=== PATIENT | female | born 1975 | race African-American/Black ===

== ENCOUNTER 2017-07-27 09:13 | Observation (INO) | payer OTHER ==
--- NOTE | 2017-07-27 09:37 | PDOC ---
Attending Attestation - HPI HPI: 07/27/17 09:54 The patient is a 42 year old female, with a significant past medical history of fibroids, endometriosis, and ovarian cysts who presents to the emergency department with vaginal bleeding for approximately 4 days. The patient reports heavy vaginal bleeding for 4 days. She states she has been soaking up to 7 pads per day. She denies any associated dysuria, frequency, urgency, or vaginal discharge. She reports associated shortness of breath, but denies any chest pain , diaphoresis, or palpitations. She reports lightheadedness, but denies any fever, chills, headache, or dizziness. She denies any recent travel or sick contacts. Allergies: Aspirin Past Surgical History: Ovarian Cystectomy. Social History: Patient is Jehovahs witness. Non smoker. No ETOH or recreational drug use. - Medical Decision Making 07/27/17 09:52 Documentation prepared by Saroj Morrow, acting as medical social worker for Erinn Ramirez MD. <Saroj Morrow - Last Filed: 07/27/17 09:52> - Resident Resident Name: Ryland Cardenas - ED Attending Attestation I have performed the following: I have examined & evaluated the patient, The case was reviewed & discussed with the resident, I agree w/resident's findings & plan, Exceptions are as noted - Physicial Exam PE: GENERAL: Awake, alert, and fully oriented. Appears pale, diaphoretic, anxious. HEAD: No signs of trauma EYES: PERRLA, EOMI, sclera anicteric, conjunctiva pale ENT: Auricles normal inspection, hearing grossly normal, nares patent, oropharynx clear without exudates. Dry mucosa NECK: Normal ROM, supple, no lymphadenopathy, JVD, or masses LUNGS: Breath sounds equal, clear to auscultation bilaterally. No wheezes, and no crackles HEART: Tachycardic with regular rhythm, normal S1 and S2, no murmurs, rubs or gallops ABDOMEN: Soft, nontender, normoactive bowel sounds. No guarding, no rebound. No masses EXTREMITIES: Normal range of motion, no edema. No clubbing or cyanosis. No cords, erythema, or tenderness NEUROLOGICAL: Cranial nerves II through XII grossly intact. Normal speech. Motor and sensation intact. SKIN: Warm, Dry, normal turgor, no rashes or lesions noted. : Mod. blood in the vaginal vault. - Medical Decision Making Pt presented with hypotension, vag bleeding. She is a [employer], declined any blood products. Initially she was hypotensive and tachycardic. D/w lunchroom worker, plan was to give depo provera. We gave TXA emergently with significant improvement in her vital signs and clinical appearance (the diaphoresis and tachycardia improved, as well as her mental status). D/w IR, recommended MRI/ MRA to further evaluate and determine whether she qualifies for embolization. Also d/w lunchroom worker, did not recommend surgery at this time. We will place on observation to monitor vital signs and serial CBCs. <Erinn Ramirez - Last Filed: 07/27/17 15:44>
[2017-07-27 09:50] VITALS: BMI 20.9
[2017-07-27] MEDS ORDERED: SODIUM CHLORIDE 1,000 ML IV STA (09:56)
[2017-07-27] MEDS ORDERED: TRANEXAMIC ACID 1000 MG/10 ML VIAL IVPUSH ONE (10:02)
[2017-07-27 10:04] LABS: BASO % 0.2 % (0-2.0); EOS % 0.6 % (0-4.5); HEMATOCRIT 22.7 % (32.4-45.2); LYMPH % 20.8 % (8-40); MCH 23.5 pg (25.7-33.7); MCHC 30.6 g/dl (32.0-36.0); MEAN CELL VOLUME 76.7 fl (80-96); MEAN PLT VOLUME 8.6 fl (7.5-11.1); MONO % 8.6 % (3.8-10.2); NEUT % 69.8 % (42.8-82.8); PLATELET COUNT 320 K/MM3 (134-434); RBC 2.96 M/mm3 (3.60-5.2); RDW 17.5 % (11.6-15.6); WHITE BLOOD COUNT 6.9 K/mm3 (4.0-10.0)
[2017-07-27] MEDS ORDERED: medroxyPROGESTERone ACET 150 MG/1 ML VIAL IM ONE ×2 (10:30→12:30)
--- NOTE | 2017-07-27 10:31 | PDOC ---
History of Present Illness - General Chief Complaint: Vaginal Bleeding Stated Complaint: VAGINAL BLEEDING Time Seen by Provider: 07/27/17 09:20 History Source: Patient Exam Limitations: No Limitations - History of Present Illness Initial Comments: 07/27/17 10:29 Patient is a 42F with history of fibroids, ovarian cysts, endometriosis here today complaining of vaginal bleeding for the past 4 days. She endorses associated shortness of breath and weakness. She states that she has gone through 7 pads per day. She states that she called an ambulance because she felt like she was going to faint. Denies fevers, chills, nausea, vomiting. Denies sexual activity and history of STDs. LMP started 4 days ago. Patient states that she has never had this much bleeding before. She states that she takes iron for chronic anemia. Past History - Past Medical History Allergies/Adverse Reactions: Allergies Allergy/AdvReac Type Severity Reaction Status Date / Time aspirin Allergy Mild Itching Verified 07/27/17 09:23 Home Medications: Ambulatory Orders NK [No Known Home Medication] 07/27/17 COPD: No - Suicide/Smoking/Psychosocial Hx Smoking History: Never smoked Have you smoked in the past 12 months: No Information on smoking cessation initiated: No Hx Alcohol Use: Yes Drug/Substance Use Hx: No Substance Use Type: Alcohol Review of Systems - Review of Systems Comments:: 07/27/17 10:39 GENERAL/CONSTITUTIONAL: No fever or chills. Positive for weakness. HEAD, EYES, EARS, NOSE AND THROAT: No change in vision. No sore throat. CARDIOVASCULAR: No chest pain. Positive for shortness of breath RESPIRATORY: No cough, wheezing, or hemoptysis. GASTROINTESTINAL: No nausea, vomiting, diarrhea or constipation. GENITOURINARY: Positive for dysuria. Negative for frequency, or change in urination. MUSCULOSKELETAL: No joint or muscle swelling or pain. No neck or back pain. SKIN: No rash NEUROLOGIC: No headache, vertigo, loss of consciousness, or change in strength/ sensation. ENDOCRINE: No increased thirst. No abnormal weight change HEMATOLOGIC/LYMPHATIC: Positive for history of anemia, easy bleeding. Negative for history of blood clots. ALLERGIC/IMMUNOLOGIC: No hives or skin allergy. *Physical Exam - Vital Signs Last Vital Signs Temp Pulse Resp BP Pulse Ox 98.5 F 88 20 133/97 100 07/27/17 09:20 07/27/17 10:08 07/27/17 10:08 07/27/17 10:08 07/27/17 10:08 - Physical Exam Comments: 07/27/17 10:39 GENERAL: Awake, alert, and fully oriented HEAD: No signs of trauma, normocephalic, atraumatic EYES: PERRLA, EOMI, sclera anicteric, conjunctiva clear ENT: Auricles normal inspection, hearing grossly normal, nares patent, oropharynx clear without exudates. Moist mucosa NECK: Normal ROM, supple, no lymphadenopathy, JVD, or masses LUNGS: No distress, speaks full sentences, tachypneic HEART: Regular rate and rhythm, normal S1 and S2, no murmurs, rubs or gallops, peripheral pulses normal and equal bilaterally. ABDOMEN: Soft, nontender, lumpy uterus consistent with 20wk EXTREMITIES: Normal inspection, Normal range of motion, no edema. No clubbing or cyanosis. NEUROLOGICAL: Cranial nerves II through XII grossly intact. Normal speech, normal gait, no focal sensorimotor deficits SKIN: Warm, Dry, normal turgor, no rashes or lesions noted. ED Treatment Course - LABORATORY CBC & Chemistry Diagram: 07/27/17 09:48 07/27/17 09:48 - ADDITIONAL ORDERS Additional order review: 07/27/17 09:48 RBC 2.96 L MCV 76.7 L MCHC 30.6 L RDW 17.5 H MPV 8.6 Neutrophils % 69.8 Lymphocytes % 20.8 Monocytes % 8.6 Eosinophils % 0.6 Basophils % 0.2 - RADIOLOGY Radiology Studies Ordered: Category Date Time Status PELVIC / BLADDER US [US] Stat Ultrasound 07/27/17 10:27 Ordered TRANSVAGINAL US PREG [US] Stat Ultrasound 07/27/17 09:29 Ordered Medical Decision Making - Medical Decision Making Patient is a 42F with history of anemia, uterine fibroids, endometriosis here today with vaginal bleeding. Hypotensive to 90/60 in field per EMS. Vital signs now stable, but HR in mid 90s. After initial evaluation, patient had syncopal episode of bathroom. Patient is [employer], is refusing any blood products. Initial fluid bolus given. EKG, CBC, CMP, UA, Upreg, Type and Screen, TVUS ordered. TVUS changed to pelvic due to fibroid size. Patient given 1g TXA. OBGYN hayde, suggests giving 25mg of depot provera. IR consulted, Dr Barba, for possible uterine artery embolization. 07/27/17 10:31 Dr Aguilar called, will come see patient. CBC 7.0, blood pressure 130/100, HR 95. 07/27/17 10:51 EKG shows normal sinus rhythm with rate of 85. No st elevations/depression. No significant t wave abnormalities. Normal axis. Normal QRS/QTc/DE intervals. 07/27/17 12:59 Hgb 7, US shows fibroids with complex adenxal cysts. Dr Berkowitz accepted admission to obs tele. 07/27/17 13:37 Dr Barba saw patient, suggests MRI w&w/o to further evaluate possibility of uterine artery embolization. *DC/Admit/Observation/Transfer Diagnosis at time of Disposition: Syncope - Discharge Dispostion Condition at time of disposition: Stable Decision to Admit order: Yes - Referrals - Patient Instructions - Post Discharge Activity
[2017-07-27 10:46] LABS: INR 1.1 (0.82-1.09); PROTHROMBIN TIME (PATIENT) 12.4 SEC (9.7-13.0)
[2017-07-27 11:00] LABS: CALCIUM 8.3 mg/dL (8.5-10.1); CHLORIDE 102 mmol/L (98-107); POTASSIUM 4.4 mmol/L (3.5-5.1); SODIUM 136 mmol/L (136-145)
[2017-07-27 11:05] LABS: URINE APPEARANCE CLOUDY; URINE BILIRUBIN NEGATIVE (<2.0 mg/dL); URINE BLOOD 3+ (NEGATIVE); URINE COLOR RED; URINE GLUCOSE (UA) 2+ (NEGATIVE); URINE KETONE TRACE (NEGATIVE); URINE NITRITE NEGATIVE (NEGATIVE); URINE UROBILINOGEN NEGATIVE mg/dL (0.2-1.0)
[2017-07-27 11:08] LABS: ALBUMIN 3.1 g/dl (3.4-5.0); ALK PHOS 59 U/L (45-117); ANION GAP 12 (8-16); BILIRUBIN,TOTAL 0.4 mg/dL (0.2-1.0); BLOOD UREA NITROGEN 7 mg/dL (7-18); CO2 22 mmol/L (21-32); CREATININE 1.1 mg/dL (0.55-1.02); GLUCOSE,RANDOM 196 mg/dL (74-106); SGOT/AST 9 U/L (15-37); SGPT/ALT 11 U/L (12-78); TOT PROT 6.6 g/dl (6.4-8.2)
[2017-07-27 11:15] LABS: URINE LEUK ESTERASE 1+ (NEGATIVE); URINE PROTEIN 2+ (NEGATIVE)
[2017-07-27 11:20] LABS: HCG,QUALITATIVE URINE NEGATIVE
--- NOTE | 2017-07-27 12:38 | CON.OBG ---
Consult Consult Specialty:: [employer]ICE [employer] Reason for Consultation:: Abnormal vaginal bleeding - History of Present Illness Chief Complaint: Vaginal bleeding with syncope History of Present Illness: 42 yo Para 1 with h/o fibroid uterus associated with vaginal bleeding brought to ER by EMT after syncope episode. She admits to always have prolonged and heavy menses. Her SERVICE SHOP FOREMAN recommended hysterectomy in the past but she refused. - History Source History Provided By: Patient Limitations to Obtaining History: No Limitations - Past Medical History ...LMP: 07/23/17 ...: No ...Para: 1 - Past Surgical History Past Surgical History: Yes: Additional Surgical History: Myomectomy - Alcohol/Substance Use Hx Alcohol Use: Yes History of Substance Use: reports: None - Smoking History Smoking history: Never smoked Have you smoked in the past 12 months: No - Social History Usual Living Arrangement: With Child History of Recent Travel: No Home Medications - Allergies Allergies/Adverse Reactions: Allergies Allergy/AdvReac Type Severity Reaction Status Date / Time aspirin Allergy Mild Itching Verified 07/27/17 09:23 - Home Medications Home Medications: Ambulatory Orders NK [No Known Home Medication] 07/27/17 Family Disease History - Family Disease History Family History: Unremarkable Review of Systems - Review of Systems Constitutional: reports: Malaise, Weakness Eyes: reports: No Symptoms HENT: reports: No Symptoms Neck: reports: No Symptoms Cardiovascular: reports: No Symptoms Respiratory: reports: No Symptoms Gastrointestinal: reports: No Symptoms Genitourinary: reports: Vaginal Bleeding Breasts: reports: No Symptoms Reported Musculoskeletal: reports: No Symptoms Integumentary: reports: No Symptoms Neurological: reports: No Symptoms Psychiatric: reports: No Symptoms Pain Intensity: 0 Physical Exam-[employer] Vital Signs: Vital Signs Temperature 98.2 F 07/27/17 09:35 Pulse Rate 88 07/27/17 10:08 Respiratory Rate 20 07/27/17 10:08 Blood Pressure 133/97 07/27/17 10:08 O2 Sat by Pulse Oximetry (%) 100 07/27/17 10:08 Constitutional: Yes: No Distress Eyes: Yes: Conjunctiva Clear HENT: Yes: Atraumatic Neck: Yes: Supple, Trachea Midline Cardiovascular: Yes: Regular Rate and Rhythm Respiratory: Yes: Regular, CTA Bilaterally Gastrointestinal: Yes: Normal Bowel Sounds ...Rectal Exam: Yes: WNL Pelvis: No: Tenderness External Genitalia: Yes: Normal Vaginal Exam: Yes: Bleeding Cervix: Yes: Normal Uterus: Yes: Enlarged Breast(s): Yes: WNL Extremities: Yes: WNL Integumentary: Yes: WNL Neurological: Yes: Alert, Oriented ...Motor Strength: WNL Psychiatric: Yes: Alert, Oriented Labs: CBC, BMP 07/27/17 09:48 07/27/17 09:48 Problem List - Problems (1) Menorrhagia with regular cycle Code(s): N92.0 - EXCESSIVE AND FREQUENT MENSTRUATION WITH REGULAR CYCLE (2) Leiomyoma of body of uterus Code(s): D25.9 - LEIOMYOMA OF UTERUS, UNSPECIFIED Qualifiers: Uterine leiomyoma location: intramural Qualified Code(s): D25.1 - Intramural leiomyoma of uterus Assessment/Plan Abnormal vaginal bleeding Menorrhagia Leiomyoma of the uterus IM Depo to stop bleeding Blood transfusion ( Pt is Jain ) Advised to follow up with her [employer]ICE [employer]OP FOREMAN to arrange for hysterectomy
[2017-07-27] MEDS ORDERED: LORazepam 2 MG/ML SDV VIAL ONE (14:36)
--- NOTE | 2017-07-27 21:13 | HP ---
Admitting History and Physical - Primary Care Physician PCP: Fartun Berkowitz - Admission Chief Complaint: heavy vaginal bleeding History of Present Illness: 42 yo Para 1 with h/o fibroid uterus associated with vaginal bleeding brought to ER by EMT after syncope episode. She admits to always have prolonged and heavy menses. Her KNOCKUP WORKER recommended hysterectomy in the past but she refused. - Past Medical History Reproductive: Yes: Fibroids ...LMP: 07/23/17 ...: No ...Para: 1 - Past Surgical History Past Surgical History: Yes: - Smoking History Smoking history: Never smoked Have you smoked in the past 12 months: No - Alcohol/Substance Use Hx Alcohol Use: Yes History of Substance Use: reports: None - Social History History of Recent Travel: No Home Medications - Allergies Allergies/Adverse Reactions: Allergies Allergy/AdvReac Type Severity Reaction Status Date / Time aspirin Allergy Mild Itching Verified 07/27/17 09:23 - Home Medications Home Medications: Ambulatory Orders Ferrous Sulfate [Feosol] 325 mg PO DAILY #30 ud 07/28/17 Physical Examination Vital Signs: Vital Signs Temperature 98.8 F 07/27/17 17:46 Pulse Rate 103 H 07/27/17 17:46 Respiratory Rate 20 07/27/17 17:46 Blood Pressure 118/80 07/27/17 17:46 O2 Sat by Pulse Oximetry (%) 100 07/27/17 17:47 Constitutional: Yes: No Distress HENT: Yes: Atraumatic Neck: Yes: Supple Cardiovascular: Yes: Regular Rate and Rhythm Respiratory: Yes: CTA Bilaterally Gastrointestinal: Yes: Normal Bowel Sounds Extremities: Yes: WNL Edema: No Peripheral Pulses WNL: Yes Neurological: Yes: Alert, Oriented Labs: CBC, BMP 07/27/17 09:48 07/27/17 09:48 Problem List - Problems (1) Leiomyoma of body of uterus Assessment/Plan: will monitor cbc pt wont get prbc as jehovas witness recruitment specialist on board Code(s): D25.9 - LEIOMYOMA OF UTERUS, UNSPECIFIED Qualifiers: Uterine leiomyoma location: intramural Qualified Code(s): D25.1 - Intramural leiomyoma of uterus (2) Menorrhagia with regular cycle Code(s): N92.0 - EXCESSIVE AND FREQUENT MENSTRUATION WITH REGULAR CYCLE Assessment/Plan Laboratory Tests 0607/27/17 07/27/17 09:48 09:48 09:48 WBC 6.9 RBC 2.96 L Hgb 7.0 L Hct 22.7 L MCV 76.7 L MCH 23.5 L MCHC 30.6 L RDW 17.5 H Plt Count 320 MPV 8.6 Neutrophils % 69.8 Lymphocytes % 20.8 Monocytes % 8.6 Eosinophils % 0.6 Basophils % 0.2 Nucleated RBC % 0 PT with INR 12.40 INR 1.10 Sodium Potassium Chloride Carbon Dioxide Anion Gap BUN Creatinine Creat Clearance w eGFR Random Glucose Calcium Total Bilirubin AST ALT Alkaline Phosphatase Creatine Kinase Troponin I Total Protein Albumin Urine Color Urine Appearance Urine pH Ur Specific [place] Urine Protein Urine Glucose (UA) Urine Ketones Urine Blood Urine Nitrite Urine Bilirubin Urine Urobilinogen Ur Leukocyte Esterase Urine WBC (Auto) Urine RBC (Auto) Urine HCG, Qual Blood Type AB POSITIVE Antibody Screen Negative 07/27/17 07/27/17 09:48 10:30 WBC RBC Hgb Hct MCV MCH MCHC RDW Plt Count MPV Neutrophils % Lymphocytes % Monocytes % Eosinophils % Basophils % Nucleated RBC % PT with INR INR Sodium 136 Potassium 4.4 Chloride 102 Carbon Dioxide 22 Anion Gap 12 BUN 7 Creatinine 1.1 H Creat Clearance w eGFR 54.21 Random Glucose 196 H Calcium 8.3 L Total Bilirubin 0.4 AST 9 L ALT 11 L Alkaline Phosphatase 59 Creatine Kinase 43 Troponin I < 0.02 Total Protein 6.6 Albumin 3.1 L Urine Color Red Urine Appearance Cloudy Urine pH 6.0 Ur Specific [place] 1.019 Urine Protein 2+ H Urine Glucose (UA) 2+ H Urine Ketones Trace H Urine Blood 3+ H Urine Nitrite Negative Urine Bilirubin Negative Urine Urobilinogen Negative Ur Leukocyte Esterase 1+ H Urine WBC (Auto) 14 Urine RBC (Auto) 6341 Urine HCG, Qual Negative Blood Type Antibody Screen
[2017-07-28 07:01] LABS: BASO % 0.3 % (0-2.0); EOS % 1.2 % (0-4.5); LYMPH % 20.4 % (8-40); MCH 24.1 pg (25.7-33.7); MCHC 30.9 g/dl (32.0-36.0); MEAN CELL VOLUME 77.9 fl (80-96); MEAN PLT VOLUME 8.6 fl (7.5-11.1); MONO % 10.3 % (3.8-10.2); NEUT % 67.8 % (42.8-82.8); PLATELET COUNT 174 K/MM3 (134-434); RBC 2.31 M/mm3 (3.60-5.2); RDW 17.1 % (11.6-15.6); WHITE BLOOD COUNT 5.7 K/mm3 (4.0-10.0)
[2017-07-28 07:06] LABS: HEMOGLOBIN 5.6 GM/dL (10.7-15.3)
--- NOTE | 2017-07-28 13:26 | EKG ---
Test Reason : Blood Pressure : / mmHG Vent. Rate : 085 BPM Atrial Rate : 085 BPM P-R Int : 134 ms QRS Dur : 068 ms QT Int : 386 ms P-R-T Axes : 051 026 015 degrees QTc Int : 459 ms NORMAL SINUS RHYTHM NORMAL ECG NO PREVIOUS ECGS AVAILABLE Confirmed by MD DAMIEN, PATRICE ([id number]) on 07/28/2017 1:25:47 PM Referred By: Confirmed By:PATRICE QUEZADA MD
[2017-07-28 15:12] VITALS: BP 121/74; PULSE 89; TEMP 97.8
--- NOTE | 2017-07-28 15:22 | DS ---
Physical Examination Vital Signs: Vital Signs Temperature 97.8 F 07/28/17 14:11 Pulse Rate 89 07/28/17 14:11 Respiratory Rate 14 07/28/17 14:11 Blood Pressure 121/74 07/28/17 14:11 O2 Sat by Pulse Oximetry (%) 100 07/28/17 13:00 Constitutional: Yes: No Distress HENT: Yes: Atraumatic Neck: Yes: Supple Cardiovascular: Yes: Regular Rate and Rhythm Respiratory: Yes: CTA Bilaterally Gastrointestinal: Yes: Normal Bowel Sounds Extremities: Yes: WNL Neurological: Yes: Alert, Oriented Labs: CBC, BMP 07/28/17 06:05 07/27/17 09:48 Discharge Summary Reason For Visit: SYNCOPE Current Active Problems Leiomyoma of body of uterus (Acute) Menorrhagia with regular cycle (Acute) Syncope (Acute) Condition: Stable - Instructions Diet, Activity, Other Instructions: follow up obgyn next week fu cbc Referrals: ON STAFF,NOT [Primary Care Provider] - Disposition: HOME - Home Medications Comprehensive Discharge Medication List: Ambulatory Orders Ferrous Sulfate [Feosol] 325 mg PO DAILY #30 ud 07/28/17 dc home see your obgyn in few 2-3 days fu cbc
[2017-07-28] MEDS ORDERED: FERROUS SO4 325 MG TABLET (FP) PO SCH (15:30)
== END 2017-07-28 18:42 | disposition home or self-care (01) ==
LOC: JER 09:13 → JERBED 13:00 → J4S 07-28 04:30
PROVIDERS: ADMIT Internal Medicine; ATTEND Internal Medicine
PROC: 3E033GC Introduction of Other Therapeutic Substance into Peripheral Vein, Percutaneous Approach (ICD-10-PCS; principal; 2017-07-27)
PROC: 3E023GC Introduction of Other Therapeutic Substance into Muscle, Percutaneous Approach (ICD-10-PCS; 2017-07-27)
PROC: 3E0337Z Introduction of Electrolytic and Water Balance Substance into Peripheral Vein, Percutaneous Approach (ICD-10-PCS; 2017-07-27)
DX: R55 Syncope and collapse (principal); N92.0 Excessive and frequent menstruation with regular cycle; D25.1 Intramural leiomyoma of uterus
CPT/HCPCS: 36415; 72197-TC; 76856-TC; 80053; 81003; 81015; 82550; 84484; 84703; 85025; 85610; 86850; 86900; 86901; 93005; 93010; 99285-25; G0378; J7030